=== PATIENT | female | born 1975 | race Hispanic/Latino ===

== ENCOUNTER 2018-10-15 06:57 | Day surgery (SDC) | payer MEDICAID ==
[~2018-10-15] VITALS: Ht 157.5 cm; Wt 117.0 kg
[~2018-10-15 06:57] MED LIST: birth control PO
[2018-10-15] MEDS ORDERED: SODIUM CHLORIDE 0.9% 1000ML 1,000 ML IV ONE (07:49)
[2018-10-15 08:04] VITALS: BP 98/51
[2018-10-15] MEDS ORDERED: PROPOFOL 10 MG/ML 20ML VIAL IV ONE (09:33)
[2018-10-15 09:45] VITALS: BP 107/60
[2018-10-15 09:50] VITALS: BP 106/60
[2018-10-15 09:55] VITALS: BP 110/66
[2018-10-15 10:00] VITALS: BP 123/87
--- NOTE | 2018-10-15 10:15 | NUR ---
dc pt dc home via [place], no distress noted, denied any pain or discomforts. accompanied by patient's uncle .
== END 2018-10-15 10:15 | disposition home or self-care (01) ==
LOC: DAH 06:57 → ENDO 06:57
PROVIDERS: ATTEND Surgery
DX: K21.9 Gastro-esophageal reflux disease without esophagitis (principal); E66.01 Morbid (severe) obesity due to excess calories; Z88.1 Allergy status to other antibiotic agents; Z68.42 Body mass index [BMI] 45.0-49.9, adult; Z87.891 Personal history of nicotine dependence; Z72.89 Other problems related to lifestyle; Z98.890 Other specified postprocedural states; Z79.3 Long term (current) use of hormonal contraceptives; Z83.3 Family history of diabetes mellitus; Z82.49 Family history of ischemic heart disease and other diseases of the circulatory system
CPT/HCPCS: 43235; 81025; A4606; J2704; J7030

== ENCOUNTER → 2024-07-04 | Outpatient (CLI) | payer MEDICAID ==
[~2024-07-04] MED LIST changes: +ACET-2079 PO; +GUAI100L96 PO; +IRON GUMMIES; +IRON GUMMIES PO; +PREN-226 PO; -birth control PO
--- NOTE | 2024-07-04 17:00 | HMCSR ---
APPROVED REPORT EXAM: Two-dimensional and M-mode echocardiogram with Doppler and color Doppler. INDICATION ICD: Encounter for antineoplastic chemotherapy Z51.11 2D Dimensions RVDd3.0 cmLVEF(%)74.3 (>50%)LVED Vol(simp.)75.2 mL IVSd0.6 (0.7-1.1cm)FS(%)43 %LVES Vol(simp.)34.7 mL LVDd5.1 (3.8-5.6cm)LA (2D)3.4 (1.6-4.0cm)LVEF(%, simp.)54 % PWd0.9 (0.7-1.1cm)Ao Root(2D)2.8 (2.0-3.7cm)LA ESV INDEX (BP)37.21 mL/m2 LVDs2.9 (2.5-4.0cm)LVOT diam1.9 (1.8-2.4cm) IVC diam1.8 cm Deformation Strain Apical 4-19.0 % Apical 2-21.0 % Apical 3-17.0 % Global Strain-19.0 % M-Mode Dimensions EPSS1.1 cm LA (MM)3.6 (1.6-4.0cm) Ao Root(MM)2.7 (2.0-3.7cm) Aortic Valve AoV Vmax1.5 m/Delvin Peak GR9.3 mmHgLVOT Vmax1.1 m/s AoV VTI0.3 mAo Mean GR5.1 mmHgLVOT VTI0.24 m ESTEVAN (VMAX)2.0 cm2AVA (VTI) 2.0 cm2 Mitral Valve MV E Vmax83.8 cm/sDECEL Sqdx685 ms MV A Vmax69.8 cm/sP 1/2 T102 ms E/A ratio1.2MVA (PHT)2.2 cm2 TDI E/E' Medial8.4 Medial E' Peak V10.00 cm/s Tricuspid Valve TR Vmax1.9 m/sRVSP15.1 mmHg TR Peak GR15.1 mmHg Left Ventricle The left ventricle is normal size. There is normal LV segmental wall motion. GS -19%. There is normal left ventricular wall thickness. LVEF is 55-60%. The left ventricular diastolic function is normal. Right Ventricle The right ventricle is normal size. The right ventricular systolic function is normal. RV GS -19%. Atria The left atrium is mildly dilated. The right atrium size is normal. Aortic Valve The aortic valve is normal in structure. No aortic regurgitation is present. There is no aortic valvu lar stenosis. Mitral Valve The mitral valve is normal in structure. There is no mitral valve regurgitation noted. There is no mi tral valve stenosis. Tricuspid Valve The tricuspid valve is normal in structure. There is no tricuspid valve regurgitation noted. Pulmonic Valve The pulmonary valve is normal in structure. There is no pulmonic valvular regurgitation. Great Vessels The aortic root is normal in size. The IVC is normal in size and collapses >50% with inspiration. Pericardium There is no pericardial effusion. Other Information Quality : Average Conclusion Left ventricle is normal in size and systolic function. Estimated LVEF of 55-60% with no wall motion abnormalities. Normal Diastolic function for age. Right ventricle is normal in size and systolic function. Left atrium is mildly dilated. No hemodynamically significant valvular abnormalities. No pericardial effusion.
== END | disposition home or self-care (01) ==
LOC: RAH 15:07
PROVIDERS: ATTEND Internal Medicine
DX: Z51.11 Encounter for antineoplastic chemotherapy (principal); I51.7 Cardiomegaly; C50.411 Malignant neoplasm of upper-outer quadrant of right female breast
CPT/HCPCS: 93306; 93356